=== PATIENT | female | born 2000 | race Caucasian/White ===

== ENCOUNTER 2023-12-19 17:29 | Emergency (ER) | payer OTHER, SELFPAY ==
[2023-12-19 17:30] VITALS: BP 122/82; PULSE 87; RESP 18; TEMP 36.4; O2SAT 100; BMI 25.6
--- NOTE | 2023-12-19 17:47 | ED_ITS ---
I was consulted by the TARUN, and we discussed the complexity of the problems being addressed. I approved the treatment and management plan for this patient's care in the emergency department, thus performing a substantive portion of the medical decision making. Braulio Costello MD Discharge Plan Disposition Patient Disposition: Home, Self-Care Condition: Good Chief Complaint: Syncope Referrals Follow up/Referrals: Provider,Referral, [Primary Care Provider] - See instructions Activity Restrictions/Add. Instructions Additional Instructions/Restrictions: Please call to make appointment with your primary care physician for suture removal in 7 to 10 days. Please return to the ER if you have any new symptoms including nausea vomiting or change in your level of consciousness. You can take Tylenol and Motrin for the discomfort and should expect it to be present tomorrow as well. You may wash your laceration with soap and water only and otherwise keep it covered with a nonocclusive bandage. Clinical Impressions Clinical Impression: Syncope, vasovagal, Laceration Discharge ED Provider: Braulio Costello General Adult HPI <LORENZA Mckeon - Last Filed: 12/19/23 20:41> General Chief complaint: Syncope Stated complaint: syncopal episode Time Seen by Provider: 12/19/23 17:47 Mode of Arrival: Wheelchair Source of Information: Patient Limitations: No Limitations Description of Symptoms (Recalled from ER Triage Doc. by RN): patient transferred from [facility] due to getting TB skin test and passing out. Patient fell from exam table to floor and has laceration to chin. Bleeding controlled. Patient states she just felt a little dizzy before passing out. History of Present Illness HPI narrative: Patient is a 23-year-old female sent from the urgent care center after having a syncopal event. Patient had just received a TB skin test and she was wiping away blood from her left forearm and the She recalls she was on the ground facing the door to the room and does not recall how she got there but noticed blood in her hair and on the floor Related Data Allergies Allergy/AdvReac Type Severity Reaction Status Date / Time amoxicillin Allergy Verified 12/19/23 18:28 PFSH <LORENZA Mckeon - Last Filed: 12/19/23 20:41> [facility] Disclaimer: The information contained in this section may have been updated after the patient was seen, as this information can be updated by other users. Social History Smoking Status: Never smoker alcohol intake: never current occupational status: employed Travel in the last 8 weeks: None <LORENZA Mckeon - Last Filed: 12/19/23 20:41> ROS Obtained: Yes Systems reviewed as appropriate & no additional complaints except as documented Physical Exam <LORENZA Mckeon - Last Filed: 12/19/23 20:41> Narrative Physical exam: The patient is a very pleasant well-nourished well-developed 23-year-old female who otherwise is in no acute distress General General appearance: alert and in no apparent distress Head Head exam: atraumatic and normal inspection Eye Eye exam: Present normal appearance, PERRL and EOMI ENT ENT exam: Present normal exam, normal oropharynx and mucous membranes moist Neck Neck exam: Present normal inspection, full ROM and trachea midline; Absent lymphadenopathy Chest Chest inspection: Present normal inspection and symmetric chest wall rise Respiratory Respiratory exam: Present normal lung sounds bilaterally; Absent accessory muscle use Cardiovascular Cardiovascular exam: Present regular rate, normal rhythm, normal heart sounds, +S1 and +S2 Abdominal Exam Abdominal exam: Present soft and normal bowel sounds; Absent tenderness, guarding or rebound Extremities Exam Extremities exam: Present normal inspection and full ROM Neurological Exam Neurological exam: Present alert, oriented X3 and CN II-XII intact Psychiatric Psychiatric exam: Present normal affect and normal mood Skin Skin exam: Present warm, dry, normal color and other (Patient has approximately 1 cm laceration on the inferior mental surface of the mandible.) Lymphatic Lymphatic Findings: no adenopathy Medical Decision Making <LORENZA Mckeon - Last Filed: 12/19/23 20:41> Medical Records Medical records reviewed: Yes I reviewed the patient's medical records. Jacky Inquiry Pt receiving controlled substance: No Vital Signs: 12/19/23 17:30 12/19/23 18:00 Temperature 97.6 F Temperature Source Oral Pulse Rate [Left] 87 Respiratory Rate 18 Blood Pressure 131/87 Blood Pressure [Right Arm] 122/82 Blood Pressure Mean 100 Blood Pressure Mean [Right Arm] 95 Blood Pressure Source [Right Arm] Automatic Cuff 02 Sat by Pulse Oximetry 100 Oxygen Delivery Method Room Air Lab Data Lab results reviewed: Yes I reviewed the patient's lab results. Lab Results 12/19/23 18:13: Urine Opiates Screen Negative, Urine Methadone Screen Negative, Ur Barbituates Screen Negative, Ur Phencyclidine Scrn Negative, Ur Amphetamines Screen Negative, U Benzodiazepines Scrn Negative, Urine Cocaine Screen Negative, U Marijuana (THC) Screen Negative 12/19/23 18:59: WBC 9.7, RBC 4.34, Hgb 12.1 L, Hct 35.9 L, MCV 82.7, MCH 27.9, MCHC 33.7, RDW 13.9, Plt Count 255, MPV 8.7, Neut % (Auto) 75.5, Lymph % (Auto) 18.0, [place] % (Auto) 5.6, Eos % (Auto) 0.6, Baso % (Auto) 0.3, Neut # (Auto) 7.3, Lymph # (Auto) 1.8, [place] # (Auto) 0.5, Eos # (Auto) 0.1, Baso # (Auto) 0.0, Sodium 137, Potassium 3.9, Chloride 104, Carbon Dioxide 26, Anion Gap 10.9, BUN 9, Creatinine 0.70, Estimated Creat Clear 127, Estimated GFR 106, Est GFR ( Amer) 128, Glucose 92, Calcium 9.5, Total Bilirubin 0.6, AST 29, ALT 19, Alkaline Phosphatase 87, Total Protein 7.2, Albumin 4.5, Globulin 2.7, Albumin/Globulin Ratio 1.7, HCG, Quant < 2 12/19/23 18:59 12/19/23 18:59 Orders (Tests/Meds): ED MEDICATIONS Discontinued Medications Generic Name Dose Route Start Last Admin Trade Name Duaneq PRN Reason Stop Dose Admin Acetaminophen 1,000 mg 12/19/23 19:45 12/19/23 19:56 Acetaminophen 500mg Tab PO 12/19/23 19:46 1,000 mg ONCE ONE Administration Cocaine HCl 1 ml 12/19/23 18:25 12/19/23 18:34 Cocaine 4% Topical Soln 4ml Bottle TP 12/19/23 18:26 1 ml ONCE ONE Administration Epinephrine HCl 1 mg 12/19/23 18:25 12/19/23 18:35 Epinephrine 1 Mg/Ml Ampul TP 12/19/23 18:26 1 mg ONCE ONE Administration Lidocaine HCl 1 ml 12/19/23 18:25 12/19/23 18:35 Lidocaine 2% Urojet 10ml TP 12/19/23 18:26 1 ml ONCE ONE Administration Tetanus/Reduced Diphtheria/Acell Pertussis 0.5 ml 12/19/23 18:29 12/19/23 18:35 Tet/Diphth/Pert-Adult 0.5ml Syringe IM 12/19/23 18:30 0.5 ml .ONCE ONE Administration ORDERS Category Date Time Status CT head/brain wo con Stat Cat Scan 12/19/23 18:08 Taken Beta HCG, Quant [HCG,Quantitative] Stat Lab 12/19/23 18:59 Completed CBC w/Auto Diff [Complete Blood Count Auto Diff] Stat Lab 12/19/23 18:59 Completed CMP [Comprehensive Metabolic Panel] Stat Lab 12/19/23 18:59 Completed Drug Screen,Urine Stat Lab 12/19/23 18:13 Completed Medical Decision Narrative: In summary patient is a 23-year-old who presents to the emergency department for evaluation of syncope. Patient is hemodynamically stable upon arrival, afebrile. Physical exam shows 1 cm laceration to her chin the remainder of her physical exam is nonfocal with a GCS of 15. Advanced radiologic imaging of the C-spine was considered however it was ruled out by the [place] spine rules. Dif ferential diagnosis includes reflex syncope versus vasovagal. Initial workup will be conducted with hematologic labs graphic investigations serration repair. Initial interventions include neurologic evaluation, TAC administration. Initial workup reviewed by me shows that her laboratory investigations are nonactionable and my informal interpretation of the CT scan of the brain without contrast shows no evidence of fracture or bleed. Upon repeat evaluation no change in mental status and neurologic evaluation remains normal and [place] Coma Scale remains 15. Given this patient is appropriate for discharge at this time with instructions to follow-up with her PCP in 7 to 10 days for suture r emoval. Patient return to ER any change in symptoms. Procedure: Laceration repair Performed by: Kee Portillo Anatomical: site chin Procedure description: After wound cleansing she was prepped under sterile conditions and with sterile prep and drape. TAC was applied for 15 minutes . 5 cc of lidocaine with epinephrine were used for local anesthesia. Wound was repaired with 6 sutures of 6 point 0 nylon. <Braulio Costello MD - Last Filed: 12/19/23 18:26> Vital Signs: 12/19/23 17:30 12/19/23 18:00 Temperature 97.6 F Temperature Source Oral Pulse Rate [Left] 87 Respiratory Rate 18 Blood Pressure 131/87 Blood Pressure [Right Arm] 122/82 Blood Pressure Mean 100 Blood Pressure Mean [Right Arm] 95 Blood Pressure Source [Right Arm] Automatic Cuff 02 Sat by Pulse Oximetry 100 Oxygen Delivery Method Room Air Lab Data Lab Results 12/19/23 18:13: Urine Opiates Screen Negative, Urine Methadone Screen Negative, Ur Barbituates Screen Negative, Ur Phencyclidine Scrn Negative, Ur Amphetamines Screen Negative, U Benzodiazepines Scrn Negative, Urine Cocaine Screen Negative, U Marijuana (THC) Screen Negative 12/19/23 18:59: WBC 9.7, RBC 4.34, Hgb 12.1 L, Hct 35.9 L, MCV 82.7, MCH 27.9, MCHC 33.7, RDW 13.9, Plt Count 255, MPV 8.7, Neut % (Auto) 75.5, Lymph % (Auto) 18.0, [place] % (Auto) 5.6, Eos % (Auto) 0.6, Baso % (Auto) 0.3, Neut # (Auto) 7.3, Lymph # (Auto) 1.8, [place] # (Auto) 0.5, Eos # (Auto) 0.1, Baso # (Auto) 0.0, Sodium 137, Potassium 3.9, Chloride 104, Carbon Dioxide 26, Anion Gap 10.9, BUN 9, Creatinine 0.70, Estimated Creat Clear 127, Estimated GFR 106, Est GFR ( Amer) 128, Glucose 92, Calcium 9.5, Total Bilirubin 0.6, AST 29, ALT 19, Alkaline Phosphatase 87, Total Protein 7.2, Albumin 4.5, Globulin 2.7, Albumin/Globulin Ratio 1.7, HCG, Quant < 2 Orders (Tests/Meds): ED MEDICATIONS Discontinued Medications Generic Name Dose Route Start Last Admin Trade Name Freq PRN Reason Stop Dose Admin Acetaminophen 1,000 mg 12/19/23 19:45 12/19/23 19:56 Acetaminophen 500mg Tab PO 12/19/23 19:46 1,000 mg ONCE ONE Administration Cocaine HCl 1 ml 12/19/23 18:25 12/19/23 18:34 Cocaine 4% Topical Soln 4ml Bottle TP 12/19/23 18:26 1 ml ONCE ONE Administration Epinephrine HCl 1 mg 12/19/23 18:25 12/19/23 18:35 Epinephrine 1 Mg/Ml Ampul TP 12/19/23 18:26 1 mg ONCE ONE Administration Lidocaine HCl 1 ml 12/19/23 18:25 12/19/23 18:35 Lidocaine 2% Urojet 10ml TP 12/19/23 18:26 1 ml ONCE ONE Administration Tetanus/Reduced Diphtheria/Acell Pertussis 0.5 ml 12/19/23 18:29 12/19/23 18:35 Tet/Diphth/Pert-Adult 0.5ml Syringe IM 12/19/23 18:30 0.5 ml .ONCE ONE Administration ORDERS Category Date Time Status CT head/brain wo con Stat Cat Scan 12/19/23 18:08 Taken Beta HCG, Quant [HCG,Quantitative] Stat Lab 12/19/23 18:59 Completed CBC w/Auto Diff [Complete Blood Count Auto Diff] Stat Lab 12/19/23 18:59 Completed CMP [Comprehensive Metabolic Panel] Stat Lab 12/19/23 18:59 Completed Drug Screen,Urine Stat Lab 12/19/23 18:13 Completed ECG Data Tracing #1: Independently interpreted by me, rate is 81, rhythm is regular, axis is normal, no ST elevation in anatomical contiguous leads, QTc 394. No high degree AV block, no evidence of LVH, no low voltage, no prolonged QT, no delta wave. Critical Care <LORENZA Mckeon - Last Filed: 12/19/23 20:41> Critical Care Time Critical Care Time: No
[2023-12-19 18:00] VITALS: BP 131/87
--- NOTE | 2023-12-19 18:07 | ECG_ITS ---
APPROVED REPORT Exam: Resting ECG HR:81 bpm ECG Measurements Heart Rate 81 AXES NH 215 P 39 QRSd 83 QRS 82 QT 356 T 72 QTc 394 Conclusion SINUS RHYTHM WITH FIRST DEGREE AV BLOCK ABNORMAL ECG UNCONFIRMED REPORT Electronically signed by : Declan Mccurdy MD 12/20/2023 21:54:46
--- NOTE | 2023-12-19 18:08 | CT_ITS ---
PROCEDURE INFORMATION: Exam: CT Head Without Contrast Exam date and time: 12/19/2023 8:08 PM Age: 23 years old Clinical indication: Injury or trauma; Fall; Blunt trauma (contusions or hematomas); Patient HX: Patient passed out in urgent treatment center here in hospital. She fell off of examination table and hit head on floor. ; Additional info: Syncope and head trauma TECHNIQUE: Imaging protocol: Computed tomography of the head without contrast. Radiation optimization: All CT scans at this facility use at least one of these dose optimization techniques: automated exposure control; mA and/or kV adjustment per patient size (includes targeted exams where dose is matched to clinical indication); or iterative reconstruction. COMPARISON: No relevant prior studies available. FINDINGS: Brain: No evidence for acute transcortical infarct. No mass effect or midline shift. No extra-axial collection. No acute intracranial hemorrhage. Basal cisterns are patent. Cerebral ventricles: No ventriculomegaly. Paranasal sinuses: Visualized sinuses are unremarkable. No fluid levels. Mastoid air cells: Visualized mastoid air cells are well aerated. Bones/joints: Unremarkable. No acute fracture. Soft tissues: Unremarkable. IMPRESSION: No acute intracranial hemorrhage or mass effect.
[2023-12-19] MEDS: COCAINE 4% TOPICAL SOLN 4ML BOTTLE 1 ML TP (18:34)
[2023-12-19] MEDS: TET/DIPHTH/PERT-ADULT 0.5ML SYRINGE 0.5 ML IM (18:35)
[2023-12-19] MEDS: EPINEPHrine 1 MG/ML AMPUL TP (18:35)
[2023-12-19] MEDS: LIDOCAINE 2% UROJET 10ML TP (18:35)
[2023-12-19 18:57] LABS: Amphetamine/Metha Screen,Urine Negative ng/ml (<1000)
[2023-12-19 18:58] LABS: Barbiturates Screen,Urine Negative ng/ml (<200); Benzodiazepines Screen,Urine Negative ng/ml (<200)
[2023-12-19 18:59] LABS: Cannabinoid Screen,Urine Negative ng/ml (<50)
[2023-12-19 19:01] LABS: Opiate Screen,Urine Negative ng/ml (<300)
[2023-12-19 19:08] LABS: Methadone Screen,Urine Negative ng/ml (<300)
[2023-12-19 19:09] LABS: Cocaine Screen,Urine Negative ng/ml (<300)
[2023-12-19 19:11] LABS: Phencyclidine Screen,Urine Negative ng/ml (<25)
[2023-12-19 19:14] LABS: Alanine Aminotransferase 19 U/L (12-78); Albumin Level 4.5 g/dl (3.5-5.0); Albumin/Globulin Ratio 1.7 (1.1-1.8); Alkaline Phosphatase 87 U/L (38-126); Anion Gap 10.9 mEq/L (5-15); Aspartate Amino Transferase 29 U/L (14-36); Basophils % 0.3 % (0.1-2.0); Bilirubin,Total 0.6 mg/dl (0.2-1.3); Blood Urea Nitrogen 9 mg/dl (7-17); Calcium 9.5 mg/dl (8.4-10.2); Carbon Dioxide 26 mmol/L (22.0-30.0); Chloride 104 mmol/L (98-107); Creatinine Clearance Estimated 127 mL/min (50-200); Eosinophils # 0.1 K/mm3 (0.0-0.4); Eosinophils % 0.6 % (0.1-12.0); Estimated Glomerular Filt Rate 106 ml/min (>60); GFR (African American) 128 ML/MIN (>60); Globulin 2.7 g/dL (1.3-3.2); Glucose 92 mg/dl (74-100); Hematocrit 35.9 % (37.0-47.0); Hemoglobin 12.1 g/dL (12.2-16.2); Lymphocytes # 1.8 K/mm3 (0.7-4.5); Mean Corpuscular HGB Conc 33.7 g/dL (31.8-35.4); Mean Corpuscular Hemoglobin 27.9 pg (27.0-31.2); Mean Corpuscular Volume 82.7 fl (81-99); Mean Platelet Volume 8.7 fl (7.4-10.4); Monocytes # 0.5 K/mm3 (0.1-1.0); Monocytes % 5.6 % (1.7-9.3); Neutrophils # 7.3 K/mm3 (1.8-7.8); Neutrophils % 75.5 % (37.0-80.0); Platelet Count 255 K/mm3 (142-424); Potassium 3.9 mmoL/L (3.5-5.1); Red Blood Count 4.34 M/mm3 (4.20-5.40); Red Cell Distribution Width 13.9 % (11.5-17.5); Sodium 137 mmol/L (136-145); Total Protein,Serum 7.2 g/dl (6.3-8.2); White Blood Count 9.7 K/mm3 (4.8-10.8)
[2023-12-19 19:46] LABS: HCG,Quantitative < 2 mIU/ml (0-5.42)
[2023-12-19] MEDS: ACETAMINOPHEN 500MG TAB 1000 MG PO (19:56)
[2023-12-19 20:41] VITALS: BP 118/76; PULSE 87; RESP 18; TEMP 37.1; O2SAT 97
== END 2023-12-19 20:49 | disposition home or self-care (01) ==
PROVIDERS: Physician Assistant; Emergency Provider Emergency Medicine
DX: R55 Syncope and collapse; S01.81XA Laceration without foreign body of other part of head, initial encounter; I44.0 Atrioventricular block, first degree; W18.30XA Fall on same level, unspecified, initial encounter; Z23 Encounter for immunization
CPT/HCPCS: 70450; 80053; 80307; 84702; 85025; 90471; 90715; 93005; 99284

== ENCOUNTER 2023-12-27 16:47 | Emergency (ER) | payer OTHER, SELFPAY ==
[2023-12-27 18:05] VITALS: PULSE 75; RESP 18; TEMP 36.9; O2SAT 100; BMI 25.6
--- NOTE | 2023-12-27 18:56 | PC.NURSE ---
Pt had 6 stitches removed from her chin. This was a nurse visit, did not see a provider.
[2023-12-27 18:57] VITALS: BP 0/0; PULSE 75; RESP 18; TEMP 36.9; O2SAT 100
== END 2023-12-27 18:20 | disposition home or self-care (01) ==
LOC: UTC 16:50
PROVIDERS: Emergency Provider Nurse Practitioner Family
DX: Z48.02 Encounter for removal of sutures (principal)